=== PATIENT | female | born 1975 | race Hispanic/Latino ===

== ENCOUNTER 2017-07-24 08:57 | Outpatient (CLI) | payer MEDICAID ==
--- NOTE | 2017-07-24 11:12 | Ultrasound Report ---
LEFT DIGITAL DIAGNOSTIC MAMMOGRAM with CAD and LEFT BREAST ULTRASOUND: 07/24/17 08:57:00 CLINICAL: Followup chronic abscess. COMPARISON:11/14/16 FINDINGS: The technologist reported a gush of foul-smelling whitish fluid with mammographic compression. The breast is predominant fatty with a slightly less prominent central retroareolar irregular density. However, there is greater retraction at the nipple. Stable periareolar skin thickening. No mass, architectural distortion or suspicious calcifications. Ultrasound of the left breast (including all four quadrants and the retroareolar area) was performed and demonstrated no residual retroareolar fluid collection is seen on the prior exam. However, there is abnormal irregular retroareolar hypoechoic soft tissue. Ultrasound of the left axilla demonstrated a slightly larger lymph node with abnormal morphology and minimal hilar fat. The lymph node measures 2.2 x 1.7 x 0.8 cm compared to 1.7 x 0.7 x 1.2 cm on the last exam. IMPRESSION: Probably benign inflammatory changes consistent with chronic abscess. Probable benign reactive left axillary lymph node. BI-RADS CATEGORY: 3 - - Probably Benign RECOMMENDATION: Six month followup left mammogram and left breast ultrasound. ACR BI-RADS MAMMOGRAPHIC CODES: 0 = Needs additional imaging evaluation; 1 = Negative; 2 = Benign; 3 = Probably benign; 4 = Suspicious; 5 = Malignant; 6 = Known biopsy-proven malignancy COMMENT: 1. Dense breast tissue, i.e., adenosis, fibrocystic changes, etc., may obscure an underlying neoplasm. 2. Approximately 10% of cancers are not detected with mammography. 3. A negative mammography report should not delay biopsy if a clinically suspicious mass is present. COMMENT: Patient follow-up letters are generated by our [employer] application.
== END 2017-07-24 08:58 | disposition home or self-care (01) ==
LOC: SPVWC 08:57
PROVIDERS: ATTEND Surgery
DX: N64.59 Other signs and symptoms in breast (principal); R92.8 Other abnormal and inconclusive findings on diagnostic imaging of breast; E11.9 Type 2 diabetes mellitus without complications; E78.5 Hyperlipidemia, unspecified; F17.200 Nicotine dependence, unspecified, uncomplicated
CPT/HCPCS: 76641; G0206